=== PATIENT | female | born 1985 | race Caucasian/White ===

== ENCOUNTER 2017-09-11 16:17 | Emergency (ER) | payer MEDICAID, OTHER ==
[~2017-09-11] VITALS: Ht 170.2 cm; Wt 62.1 kg
[2017-09-11 16:27] VITALS: BP 117/75
--- NOTE | 2017-09-11 16:33 | NUR ---
pt to lobby to wait for available bed with steady gait.
--- NOTE | 2017-09-11 18:37 | NUR ---
PATIENT AMBULATED TO BED #10
--- NOTE | 2017-09-11 18:44 | NUR ---
32YO TO ER WITH C/O RASH X 6DAYS. PT STATES TRYING YEAST CREAM, ABX AND BENYDRYL.RASH HAS NOT GOTTEN BETTER. ITICHING IS ALL OVER TRUNK AND NECK. LIGHT RED SMALL BUMPS NOTED TO TRUNK AND NECK. NO OTHER MEDICAL C/O AT THIS TIME. WILL CONTINUE TO MONITOR. ER MD MADE AWARE
--- NOTE | 2017-09-11 18:46 | NUR ---
Patient being evaluated by physician FORMULA MAKER at bedside.
[2017-09-11] MEDS ORDERED: methylPREDNISolone SS 125 MG in WATER STERILE 2 ML IM ONE (18:50)
[2017-09-11] MEDS ORDERED: diphenhydrAMINE 50 MG/ML VIAL IM ONE (18:50)
--- NOTE | 2017-09-11 19:10 | NUR ---
RECEIVED REPORT FROM AM NURSE. PT RESTING COMFORTABLY IN BED, RR EVEN AND UNLABORED. ALL NEEDS MET AT THIS TIME.
[2017-09-11 19:56] VITALS: BP 113/69
--- NOTE | 2017-09-11 19:56 | NUR ---
Patient discharged with v/s stable. Written and verbal after care instructions given and explained. Patient alert, oriented and verbalized understanding of instructions. Ambulatory with steady gait. All questions addressed prior to discharge. ID band removed. Patient advised to follow up with PMD. Rx of PREDNISONE, BENADRYL given. Patient educated on indication of medication including possible reaction and side effects. Opportunity to ask questions provided and answered.
== END 2017-09-11 19:56 | disposition home or self-care (01) ==
LOC: MED 16:17
DX: R21 Rash and other nonspecific skin eruption (principal)
CPT/HCPCS: 96372; 99284; J1200; J2930